=== PATIENT | female | born 1945 | race Caucasian/White ===

== ENCOUNTER 2016-04-30 12:48 | Emergency (ER) | payer MEDICARE ==
[2016-04-30 13:28] LABS: Basophils % (A) 1 %; CH 31.7; CHCM 34.7; Eosinophils # (A) 0.1 k/uL (0-0.7); Eosinophils % (A) 1 %; HCT 45.9 % (34.0-46.0); HDW 2.74; HGB 15.4 gm/dL (11.4-16.0); Luc # (Auto) 0.14; Luc % (Auto) 2; Lymphocytes # (A) 2.1 k/uL (1.0-4.8); Lymphocytes % (A) 25 %; MCH 30.9 pg (25.0-35.0); MCHC 33.6 g/dL (31.0-37.0); MCV 91.9 fL (80.0-100.0); Mean Platelet Volume 7.5; Monocytes # (A) 0.4 k/uL (0-1.0); Monocytes % (A) 5 %; Neutrophils # (A) 5.7 k/uL (1.3-7.7); Neutrophils % (A) 67 %; RBC 4.99 m/uL (3.80-5.40); RDW 13.9 % (11.5-15.5); WBC 8.4 k/uL (3.8-10.6); WBC (Perox) 8.48
[2016-04-30 13:36] LABS: ALT 44 U/L (9-52); AST 31 U/L (14-36); Alkaline Phosphatase 115 U/L (38-126); Amylase 49 U/L (30-110); Anion Gap 12 mmol/L; Blood Urea Nitrogen 14 mg/dL (7-17); Calcium 9.7 mg/dL (8.4-10.2); Carbon Dioxide 23 mmol/L (22-30); Chloride 105 mmol/L (98-107); Glucose 107 mg/dL (74-99); Magnesium 1.8 mg/dL (1.6-2.3); Non-African American GFR(MDRD) >60 (>60 ml/min/1.73 sqM); Potassium 4.8 mmol/L (3.5-5.1); Sodium 140 mmol/L (137-145); Total Bilirubin 0.7 mg/dL (0.2-1.3)
--- NOTE | 2016-04-30 13:38 | XR ---
EXAMINATION TYPE: XR chest 2V DATE OF EXAM: 04/30/2016 1:33 PM COMPARISON: 03/11/2016 HISTORY: Chest pain FINDINGS: The lungs are clear and there is no pneumothorax, pleural effusion, or focal pneumonia. Biapical pl eural-based thickening. Arthropathy of the AC joints. Degenerative change of the spine. IMPRESSION: 1. No acute process.
--- NOTE | 2016-04-30 13:43 | ED ---
Chest Pain HPI - General Chief Complaint: Chest Pain Stated Complaint: Chest Pain Time Seen by Provider: 04/30/16 12:58 Source: patient, RN notes reviewed Mode of arrival: wheelchair - History of Present Illness Initial Comments: This is a 71-year-old female her prior history of pulmonary embolism in the right side 2 years ago who presents with complaints of the onset of chest pain. She states was 9 at/10 in severity left-sided sharp in nature suicidal for the past 4-5 days and 3 was constant today and however was radiating to the back. No complaints of cough fevers chills nausea vomiting sweats or other symptoms. MD Complaint: chest pain - Related Data Home Medications Medication Instructions Recorded Confirmed Albuterol Inhaler [Ventolin Hfa 2 puff INHALATION RT-Q6H PRN 03/11/16 04/30/16 Inhaler] Budesonide/Formoterol Fumarate 2 puff INHALATION RT-BID PRN 03/11/16 04/30/16 [Symbicort 160-4.5 Mcg Inhaler] Ipratropium-Albuterol Nebulize 3 ml INHALATION RT-TID PRN 03/11/16 04/30/16 [Duoneb 0.5 mg-3 mg/3 ml Soln] Zolpidem [Ambien] 5 mg PO HS PRN 03/11/16 04/30/16 HYDROcodone/APAP 5-325MG [[place] 1 tab PO Q8H PRN 04/30/16 04/30/16 5-325] Previous Rx's Medication Instructions Recorded Albuterol Nebulized [Ventolin 2.5 mg INHALATION RT-QID nebu 03/14/16 Nebulized] Loratadine [Claritin] 10 mg PO DAILY #30 tab 03/14/16 Montelukast [Singulair] 10 mg PO HS #30 tab 03/14/16 HYDROcodone/APAP 7.5-325MG [[place] 1 tab PO Q6HR PRN #20 tab 04/30/16 7.5-325] Ketorolac [Toradol] 10 mg PO Q6HR #20 tab 04/30/16 Allergies Allergy/AdvReac Type Severity Reaction Status Date / Time amoxicillin trihydrate Allergy Nausea & Verified 04/30/16 13:43 [From Augmentin] Vomiting caffeine Allergy Rapid Verified 04/30/16 13:43 Heart Rate- CAUSES A FLUTTER morphine Allergy Nausea & Verified 04/30/16 13:43 Vomiting Penicillins Allergy Nausea & Verified 04/30/16 13:43 Vomiting potassium clavulanate Allergy Nausea & Verified 04/30/16 13:43 [From Augmentin] Vomiting prednisone AdvReac Diarrhea Verified 04/30/16 13:43 Review of Systems ROS Statement: Those systems with pertinent positive or pertinent negative responses have been documented in the HPI. ROS Other: All systems not noted in ROS Statement are negative. EKG Findings - EKG Results: EKG: interpreted by FRANK, sinus rhythm (Sinus rhythm rate is 73. Arrival 144 QRS duration 84 QT/QTC 394/434 left exodeviation LVH nonspecific ST configuration) Past Medical History Past Medical History: Asthma, Deep Vein Thrombosis (DVT), Hyperlipidemia, Myocardial Infarction (CA), Neurologic Disorder, Pulmonary Embolus (PE), Respiratory Disorder Additional Past Medical History / Comment(s): 2013 pulmonary embolism, DVT GLORY. LEGS 1988, BRAIN ANEURYSM ABOUT 5 MM- HAS CHECKED REGULARLY- HASN'T GROWN, migraines, osteoporosis, past R lowr arm fx. Last Myocardial Infarction Date:: 2007 History of Any Multi-Drug Resistant Organisms: None Reported Past Surgical History: Heart Catheterization, Hysterectomy, Orthopedic Surgery Additional Past Surgical History / Comment(s): 2007 cardiac cath-clear, RT ROTATOR CUFF REPAIR 2001?, CHIARI MALFORMATION SURGERY 2001, colonoscopy-normal Past Anesthesia/Blood Transfusion Reactions: Postoperative Nausea & Vomiting ( PONV) Past Psychological History: No Psychological Hx Reported Additional Psychological History / Comment(s): Pt resides with her spouse. She is independent. Smoking Status: Former smoker Past Alcohol Use History: Occasional Additional Past Alcohol Use History / Comment(s): Pt started smoking in 1961 and quit in 2007. Past Drug Use History: None Reported - Past Family History Father Family Medical History: Cancer Additional Family Medical History / Comment(s): Bipolar, Melonoma Cancer Mother Family Medical History: Cancer, Diabetes Mellitus Additional Family Medical History / Comment(s): Cervical cancer General Exam - General Exam Comments Initial Comments: Is a well-developed well-nourished awake alert oriented 3 female General appearance: alert, anxious Head exam: Present: atraumatic, normocephalic, normal inspection Eye exam: Present: normal appearance, PERRL, EOMI. Absent: scleral icterus, conjunctival injection, periorbital swelling ENT exam: Present: normal exam, mucous membranes moist Neck exam: Present: normal inspection. Absent: tenderness, meningismus, lymphadenopathy Respiratory exam: Present: normal lung sounds bilaterally, chest wall tenderness. Absent: respiratory distress, wheezes, rales, rhonchi, stridor Cardiovascular Exam: Present: regular rate, normal rhythm, normal heart sounds. Absent: systolic murmur, diastolic murmur, rubs, gallop, clicks GI/Abdominal exam: Present: soft, normal bowel sounds. Absent: distended, tenderness, guarding, rebound, rigid Extremities exam: Present: normal inspection, full ROM, normal capillary refill. Absent: tenderness, pedal edema, joint swelling, calf tenderness Back exam: Present: normal inspection Neurological exam: Present: alert, oriented X3, CN II-XII intact Psychiatric exam: Present: normal affect, normal mood Skin exam: Present: warm, dry, intact, normal color. Absent: rash Course Vital Signs 04/30/16 12:51 Temperature 97.6 F Pulse Rate 78 Respiratory 22 Rate Blood Pressure 146/80 O2 Sat by Pulse 99 Oximetry Chest Pain MDM - MDM I did discuss findings with the patient and her . X-rays are negative the workup is thus far negative the presentation is consistent with costochondritis. She had recently been doing a lot of coughing. She'll be discharged on appropriate medication she is to follow-up with her doctor and return when necessary Disposition Clinical Impression: Costalchondritis, Chest wall syndrome Disposition: HOME SELF-CARE Condition: Good Instructions: Costochondritis (ED) Prescriptions: HYDROcodone/APAP 7.5-325MG [[place] 7.5-325] 1 tab PO Q6HR PRN #20 tab PRN Reason: Pain Ketorolac [Toradol] 10 mg PO Q6HR #20 tab
[2016-04-30 13:55] LABS: INR 1.1 (<1.1); Prothrombin Time 10.7 sec (9.0-12.0)
[2016-04-30 14:00] LABS: Creatine Kinase 46 U/L (30-135)
[2016-04-30 14:02] LABS: Partial Thromboplastin Time 21.9 sec (22.0-30.0)
[2016-04-30 14:12] LABS: Creatine Kinase MB 0.7 ng/mL (0.0-2.4); Troponin I <0.012 ng/mL (0.000-0.034)
[2016-04-30] MEDS ORDERED: RX INFO: IV CONTRAST WAS GIVEN 1 EACH MISC MISCELLANE PRN (14:17)
--- NOTE | 2016-04-30 14:57 | CT ---
EXAMINATION TYPE: CT angio chest DATE OF EXAM: 04/30/2016 2:44 PM COMPARISON: 08/23/2015 HISTORY: 71-year-old female with shortness or breath and chest pain with a history of PE. TECHNIQUE: Contiguous axial scanning of the chest performed with IV Contrast, patient injected with 1 00 mL of Omnipaque 350. Coronal/sagittal MIP reconstructions performed. CT DLP: 419.9 mGycm Automated exposure control for dose reduction was used. FINDINGS: Heart is normal size without pericardial effusion. Aorta is normal caliber with conventional arch vessel branching anatomy. No thoracic lymphadenopathy by CT size criteria. Satisfactory opacification of the pulmonary arterial system without evidence for pulmonary embolus. Mild central bronchial wall thickening is noted. No consolidation or pleural effusion. Mild dependent atelectasis. There is a small hiatal hernia. Possible fatty infiltration of the liver. 3 mm nonobstructive calculu s posterior left kidney. Bones: Mild endplate spondylosis throughout the thoracic spine. No osseous destructive process. IMPRESSION: 1. NO EVIDENCE FOR PULMONARY EMBOLUS. 2. MILD CENTRAL BRONCHIAL WALL THICKENING COULD REPRESENT BRONCHITIS OR ASTHMA. 3. SOME INCIDENTAL UPPER ABDOMINAL FINDINGS ABOVE.
[2016-04-30] MEDS ORDERED: KETOROLAC 30 MG/ML 1 ML VIAL IVP STA (15:41)
[2016-04-30 15:56] VITALS: PULSE 67; RESP 16; TEMP 96.9
[2016-04-30 16:02] VITALS: BP 142/93
== END 2016-04-30 16:03 | disposition home or self-care (01) ==
LOC: EC 12:48
DX: M94.0 Chondrocostal junction syndrome [Tietze] (principal); R07.1 Chest pain on breathing; J45.909 Unspecified asthma, uncomplicated; I25.2 Old myocardial infarction; Z88.0 Allergy status to penicillin; Z88.5 Allergy status to narcotic agent; Z91.048 Other nonmedicinal substance allergy status; Z88.8 Allergy status to other drugs, medicaments and biological substances; Z86.711 Personal history of pulmonary embolism; Z86.718 Personal history of other venous thrombosis and embolism; Z87.891 Personal history of nicotine dependence
CPT/HCPCS: 36415; 93005; 85379; 80053; 82150; 82550; 82553; 83690; 83735; 84484; 85025; 85610; 85730; 71020; 71275; 96374; 99285; Q9967; J1885

== ENCOUNTER 2016-07-14 00:20 | Inpatient (IN) | payer MEDICARE ==
[2016-07-14 01:11] LABS: Basophils # (A) 0.1 k/uL (0-0.2); Basophils % (A) 1 %; CH 32.8; CHCM 34.3; Eosinophils % (A) 0 %; HCT 43.6 % (34.0-46.0); HDW 2.62; HGB 14.6 gm/dL (11.4-16.0); Luc # (Auto) 0.16; Luc % (Auto) 2; Lymphocytes # (A) 3.8 k/uL (1.0-4.8); Lymphocytes % (A) 39 %; MCH 32.2 pg (25.0-35.0); MCHC 33.4 g/dL (31.0-37.0); MCV 96.3 fL (80.0-100.0); Monocytes # (A) 0.5 k/uL (0-1.0); Monocytes % (A) 5 %; Neutrophils # (A) 5.2 k/uL (1.3-7.7); Neutrophils % (A) 54 %; RBC 4.52 m/uL (3.80-5.40); RDW 13.3 % (11.5-15.5); WBC 9.8 k/uL (3.8-10.6); WBC (Perox) 9.65
[2016-07-14 01:21] LABS: ALT 34 U/L (9-52); AST 23 U/L (14-36); Alkaline Phosphatase 97 U/L (38-126); Amylase 43 U/L (30-110); Anion Gap 11 mmol/L; Blood Urea Nitrogen 22 mg/dL (7-17); Calcium 9.3 mg/dL (8.4-10.2); Carbon Dioxide 23 mmol/L (22-30); Chloride 104 mmol/L (98-107); Glucose 148 mg/dL (74-99); Non-African American GFR(MDRD) >60 (>60 ml/min/1.73 sqM); Potassium 3.9 mmol/L (3.5-5.1); Sodium 138 mmol/L (137-145); Total Bilirubin 0.7 mg/dL (0.2-1.3); Total Protein 6.4 g/dL (6.3-8.2)
[2016-07-14 01:26] LABS: INR 1.2 (<1.1); Prothrombin Time 11.6 sec (9.0-12.0)
--- NOTE | 2016-07-14 01:29 | ED ---
Chest Pain HPI - General Chief Complaint: Chest Pain Stated Complaint: CHEST PAIN Time Seen by Provider: 07/14/16 00:36 Source: patient, EMS Mode of arrival: EMS Limitations: no limitations - History of Present Illness Initial Comments: This patient is a 71-year-old woman who presents to be evaluated for substernal chest pain. The patient indicates the area from the epigastrium to about sternal notch. She states that radiates to her back. The pain started around 9 :30 while she was driving here from [place]. She describes it as a severe heaviness, constant. She tried a number of things at home for this, including sitting down and resting, lying down, but not it seemed to help. When the pain continued they phoned EMS, who did give nitroglycerin that seemed to help with the pain. In addition, the patient had an episode of nausea and vomiting at home. She also stated that it was feeling hard to breathe and she was somewhat sweaty. MD Complaint: chest pain Onset/Timin -: hour(s) Onset: other (While driving) Pain Location: substernal Pain Radiation: back Severity: severe Quality: heaviness Consistency: constant Improves With: nitroglycerin Worsens With: nothing Anginal Symptoms: nausea, vomiting Treatments Prior to Arrival: aspirin, nitroglycerin, oxygen - Related Data Home Medications Medication Instructions Recorded Confirmed Albuterol Inhaler [Ventolin Hfa 2 puff INHALATION RT-Q6H PRN 03/11/16 07/14/16 Inhaler] Budesonide/Formoterol Fumarate 2 puff INHALATION RT-BID PRN 03/11/16 07/14/16 [Symbicort 160-4.5 Mcg Inhaler] Ipratropium-Albuterol Nebulize 3 ml INHALATION RT-TID PRN 03/11/16 07/14/16 [Duoneb 0.5 mg-3 mg/3 ml Soln] Zolpidem [Ambien] 5 mg PO HS PRN 03/11/16 07/14/16 Escitalopram [Lexapro] 10 mg PO DAILY 07/14/16 07/14/16 Previous Rx's Medication Instructions Recorded Albuterol Nebulized [Ventolin 2.5 mg INHALATION RT-QID nebu 03/14/16 Nebulized] Montelukast [Singulair] 10 mg PO HS #30 tab 03/14/16 Allergies Allergy/AdvReac Type Severity Reaction Status Date / Time amoxicillin trihydrate Allergy Nausea & Verified 07/14/16 00:38 [From Augmentin] Vomiting caffeine Allergy Rapid Verified 07/14/16 00:38 Heart Rate- CAUSES A FLUTTER morphine Allergy Nausea & Verified 07/14/16 00:38 Vomiting Penicillins Allergy Nausea & Verified 07/14/16 00:38 Vomiting potassium clavulanate Allergy Nausea & Verified 07/14/16 00:38 [From Augmentin] Vomiting prednisone AdvReac Diarrhea Verified 07/14/16 00:38 Review of Systems ROS Statement: Those systems with pertinent positive or pertinent negative responses have been documented in the HPI. ROS Other: All systems not noted in ROS Statement are negative. Constitutional: Denies: fever, chills Respiratory: Reports: as per HPI, dyspnea. Denies: cough, wheezes, hemoptysis Cardiovascular: Reports: as per HPI, chest pain. Denies: palpitations, dyspnea on exertion, orthopnea, edema, syncope Gastrointestinal: Reports: as per HPI, nausea, vomiting. Denies: abdominal pain , melena, hematochezia Genitourinary: Denies: dysuria, hematuria Musculoskeletal: Reports: as per HPI, back pain Skin: Denies: rash Neurological: Denies: headache, weakness Psychiatric: Reports: anxiety EKG Findings - EKG Comments: EKG Findings:: Comparison EKG 04/30/2016. In comparison with today there is a moderate amount of baseline artifact due to tremor however no notable EKG changes. - EKG Results: EKG: interpreted by ERMD, sinus rhythm (Rate 62 bpm) - Blocks, Dumas, Hypertrophy, ST Abn: QRS axis and voltage: left axis deviation (-30 to -90) Chamber hypertrophy or enlargement: left ventricular hypertrophy or enlargement (LVE) Repolarization changes or abnormalities: nonspecific abnormality, ST segment, and/or T wave Past Medical History Past Medical History: Asthma, Deep Vein Thrombosis (DVT), Hyperlipidemia, Myocardial Infarction (ID), Neurologic Disorder, Pulmonary Embolus (PE), Respiratory Disorder Additional Past Medical History / Comment(s): 2013 pulmonary embolism, DVT GLORY. LEGS 1988, BRAIN ANEURYSM ABOUT 5 MM- HAS CHECKED REGULARLY- HASN'T GROWN, migraines, osteoporosis, past R lowr arm fx. Last Myocardial Infarction Date:: 2007 History of Any Multi-Drug Resistant Organisms: None Reported Past Surgical History: Heart Catheterization, Hysterectomy, Orthopedic Surgery Additional Past Surgical History / Comment(s): 2007 cardiac cath-clear, RT ROTATOR CUFF REPAIR 2001?, CHIARI MALFORMATION SURGERY 2001, colonoscopy-normal Past Anesthesia/Blood Transfusion Reactions: Postoperative Nausea & Vomiting ( PONV) Past Psychological History: No Psychological Hx Reported Additional Psychological History / Comment(s): Pt resides with her spouse. She is independent. Smoking Status: Former smoker Past Alcohol Use History: Occasional Additional Past Alcohol Use History / Comment(s): Pt started smoking in 1961 and quit in 2007. Past Drug Use History: None Reported - Past Family History Father Family Medical History: Cancer Additional Family Medical History / Comment(s): Bipolar, Melonoma Cancer Mother Family Medical History: Cancer, Diabetes Mellitus Additional Family Medical History / Comment(s): Cervical cancer General Exam Limitations: no limitations General appearance: alert, anxious Head exam: Present: atraumatic, normocephalic Eye exam: Present: normal appearance ENT exam: Present: mucous membranes dry Neck exam: Present: normal inspection Respiratory exam: Present: normal lung sounds bilaterally. Absent: respiratory distress, wheezes, rales, rhonchi, stridor Cardiovascular Exam: Present: regular rate, normal rhythm, normal heart sounds. Absent: systolic murmur, diastolic murmur, rubs, gallop GI/Abdominal exam: Present: soft. Absent: distended, tenderness, guarding, rebound Extremities exam: Present: normal inspection, normal capillary refill. Absent: pedal edema, calf tenderness Back exam: Present: normal inspection. Absent: CVA tenderness (R), CVA tenderness (L) Neurological exam: Present: alert Skin exam: Present: warm, dry, intact, normal color. Absent: rash Course Vital Signs 07/14/16 07/14/16 00:33 04:46 Temperature 98 F Pulse Rate 52 L 56 L Respiratory 20 16 Rate Blood Pressure 146/74 155/72 O2 Sat by Pulse 97 98 Oximetry Chest Pain [facility] Patient is a 71-year-old woman presenting with chest pain and found to have acute PE. Given her recent return travel here from [place], suspect that this is the etiology of the PE. Patient will have duplex Doppler. Patient is started on high-dose heparin protocol. She is hemodynamically stable and her symptoms have been managed well with the medication from EMS. Patient admitted under hospitalist group, covering for Dr. Bates on weekends. This patient does see Dr. Garcia for her pulmonology care, and he will be consulted as well. Critical Care Time Critical Care Time: Yes (35 minutes) Disposition Clinical Impression: Pulmonary embolism Disposition: ADMITTED IP TO THIS HOSP Condition: Serious
[2016-07-14 01:31] LABS: Creatine Kinase 28 U/L (30-135)
--- NOTE | 2016-07-14 01:43 | XR ---
EXAM: XR Chest, 2 Views. CLINICAL HISTORY: Reason: Chest Pain TECHNIQUE: Frontal and lateral views of the chest. COMPARISON: CXR 04/30/16 FINDINGS: Lungs: Unremarkable. No consolidation. Pleural space: Unremarkable. No pneumothorax. Heart: Unremarkable. No cardiomegaly. Mediastinum: Unremarkable. Bones/joints: Multilevel degenerative changes of the spine. IMPRESSION: No acute findings.
[2016-07-14 01:44] LABS: Creatine Kinase MB 0.4 ng/mL (0.0-2.4); Troponin I <0.012 ng/mL (0.000-0.034)
[2016-07-14 02:02] LABS: Partial Thromboplastin Time 20.2 sec (22.0-30.0)
[2016-07-14] MEDS ORDERED: RX INFO: IV CONTRAST WAS GIVEN 1 EACH MISC MISCELLANE PRN (02:34)
--- NOTE | 2016-07-14 03:39 | CT ---
EXAM: CT Angiography Chest With Intravenous Contrast. CLINICAL HISTORY: Reason: Pain TECHNIQUE: Axial computed tomographic angiography images of the chest with intravenous contrast using pulmonary embolism protocol. CTDI is 11.5 mGy and total DLP is 461 mGy-cm This CT exam was performed using one or more of the following dose reduction techniques: automated exposure control, adjustment of the mA and/or kV according to patient size, and/or use of iterative reconstruction technique. MIP reconstructed images were created and reviewed. Coronal and sagittal reformatted images were created and reviewed. COMPARISON: Chest CT 04/30/16. FINDINGS: Pulmonary arteries: Acute pulmonary emboli are seen within a medial left lower lobe subsegmental artery and a lateral subsegmental left lower lobe pulmonary artery. Aorta: No acute findings. No thoracic aortic aneurysm. Lungs: Left upper lobe granuloma. Bibasilar atelectasis. No mass. Pleural space: Unremarkable. No significant effusion. No pneumothorax. Heart: Unremarkable. No cardiomegaly. No significant pericardial effusion. No evidence of RV dysfunction. Bones/joints: No acute fracture. No dislocation. Soft tissues: Unremarkable. Lymph nodes: Unremarkable. No enlarged lymph nodes. Upper Abdomen: 3 mm left renal calculus. Fatty infiltration of the liver. Small hiatal hernia. IMPRESSION: Acute pulmonary emboli are seen within a medial left lower lobe subsegmental artery and a lateral subsegmental left lower lobe pulmonary artery. [employer] 07/14/16 03:41 Call Doctor Regarding Pulmonary Embolism, called Dr. Lynn on 07/14 03:41 (-04:00)
[2016-07-14] MEDS ORDERED: HEPARIN SODIUM,PORCINE 5,000 UNIT/ML 1 ML VIAL IV PRN (03:41)
[2016-07-14] MEDS ORDERED: HEPARIN SODIUM,PORCINE 10,000 UNIT/ML 1 ML VIAL IV ONE (03:41)
[2016-07-14] MEDS: HEPARIN SODIUM,PORCINE/D5W PMX 25,000 UNIT in DEXTROSE/WATER 1 500ML.BAG IV SCH (04:17)
[2016-07-14] MEDS ORDERED: ONDANSETRON 4 MG/2 ML VIAL IVP PRN (04:25)
[2016-07-14] MEDS ORDERED: MAG HYDROX/AL HYDROX/SIMETH 30 ML CUP PO PRN (04:25)
[2016-07-14] MEDS ORDERED: NALOXONE 0.4 MG/ML 1 ML VIAL IV PRN (04:25)
[2016-07-14] MEDS ORDERED: IPRATROPIUM-ALBUTEROL 3 ML NEB INHALATION PRN (04:29)
[2016-07-14] MEDS ORDERED: ZOLPIDEM 5 MG TAB PO PRN (04:29)
[2016-07-14] MEDS ORDERED: SYMBICORT 160-4.5 MCG INHALER INHALATION PRN (04:29)
[2016-07-14] MEDS ORDERED: ALBUTEROL NEBULIZED 2.5 MG/3 ML INHALATION PRN (04:29)
[2016-07-14] MEDS ORDERED: IBUPROFEN 400 MG TAB PO STA (04:53)
[2016-07-14] MEDS: SODIUM CHLORIDE 0.9% 1,000 ML IV SCH (04:58)
[2016-07-14 05:26] VITALS: BMI 30.3
[2016-07-14] MEDS: FAMOTIDINE 20 MG TAB PO SCH ×2 (08:47→23:05)
[2016-07-14] MEDS: ACETAMINOPHEN TAB 325 MG TAB PO PRN (11:06)
--- NOTE | 2016-07-14 11:58 | US ---
EXAMINATION TYPE: US venous doppler duplex LE BI DATE OF EXAM: 07/14/2016 10:32 AM COMPARISON: 12/02/2013 CLINICAL HISTORY: 71-year-old female with pain, possible DVT. PE, patient states bilateral leg pain, currently on blood thinners SIDE PERFORMED: Bilateral TECHNIQUE: The lower extremity deep venous system is examined utilizing real time linear array sonog stalin with graded compression, doppler sonography and color-flow sonography. FINDINGS: VESSELS IMAGED: External Iliac Vein (EIV) Common Femoral Vein Deep Femoral Vein Greater Saphenous Vein * Femoral Vein Popliteal Vein Small Saphenous Vein * Proximal Calf Veins (* superficial vessels) Right Leg: Negative for DVT Left Leg: Negative for DVT IMPRESSION: No evidence for DVT within the bilateral lower extremities imaged from the groin to the upper calves.
--- NOTE | 2016-07-14 12:03 | P.CNPUL ---
History of Present Illness Consult date: 07/14/16 Reason for consult: pulmonary embolism History of present illness: Very pleasant 71-year-old female patient who presented yesterday to the emergency department because of an acute pain over the anterior chest that was getting worse with breathing. She was thinking that this may be costochondritis knowing that she is been suffering from the same for the past 3 months. In fact the patient was in the emergency department on 04/30/2016 for costochondritis and she was given painkillers. She has a remote history of bilateral lower extremity DVT and this was more than 35 years ago. Back in 2013 , she was diagnosed having a subsegmental pulmonary embolism in the right lung and she was given brief anticoagulation with Xarelto. She subsequently quit. During this current episode, the patient was driving back from [place]. She dropped her daughter in [place] and following that she drove herself to [place]. The patient claims that she had made some stops in between the 70s and she was stretching her legs and keeping herself active. A Doppler of the lower extremity was done this morning and the results are still pending for now and I' m not sure if there is any clots in her leg. Meanwhile the patient is currently on IV heparin. She is doing better. No shortness of breath for now. No chest pain. The CT angios the chest was done. I reviewed the CAT scan images. There is no central pulmonary embolism. There may be a subsegmental pulmonary artery clot in the left lower lobe and this was also noted by the radiologist. I think it's reasonable to treat this patient with anticoagulation based on her history which is very much suggestive of a PE. Review of Systems Full review of system was done and the positive findings are almost above in history of present illness Past Medical History Past Medical History: Asthma, Deep Vein Thrombosis (DVT), Hyperlipidemia, Myocardial Infarction ([place]), Neurologic Disorder, Pulmonary Embolus (PE), Respiratory Disorder Additional Past Medical History / Comment(s): 2013 pulmonary embolism, DVT GLORY. LEGS 1988, moderate persistent bronchial asthma, costochondritis BRAIN ANEURYSM ABOUT 5 MM- HAS CHECKED REGULARLY- HASN'T GROWN, migraines, osteoporosis, Chiari malformation of the brain Last Myocardial Infarction Date:: 2007 History of Any Multi-Drug Resistant Organisms: None Reported Past Surgical History: Heart Catheterization, Hysterectomy, Orthopedic Surgery Additional Past Surgical History / Comment(s): 2007 cardiac cath-clear, RT ROTATOR CUFF REPAIR 2001?, CHIARI MALFORMATION SURGERY 2001, colonoscopy-normal Past Anesthesia/Blood Transfusion Reactions: Postoperative Nausea & Vomiting ( PONV) Past Psychological History: No Psychological Hx Reported Additional Psychological History / Comment(s): Pt resides with her spouse. She is independent. Smoking Status: Former smoker Past Alcohol Use History: Occasional Additional Past Alcohol Use History / Comment(s): Pt started smoking in 1961 and quit in 2007. Past Drug Use History: None Reported - Past Family History Father Family Medical History: Cancer Additional Family Medical History / Comment(s): Bipolar, Melonoma Cancer Mother Family Medical History: Cancer, Diabetes Mellitus Additional Family Medical History / Comment(s): Cervical cancer Medications and Allergies Home Medications Medication Instructions Recorded Confirmed Type Albuterol Inhaler [Ventolin Hfa 2 puff INHALATION RT-Q6H PRN 03/11/16 07/14/16 History Inhaler] Budesonide/Formoterol Fumarate 2 puff INHALATION RT-BID PRN 03/11/16 07/14/16 History [Symbicort 160-4.5 Mcg Inhaler] Zolpidem [Ambien] 5 mg PO HS PRN 03/11/16 07/14/16 History Albuterol Nebulized [Ventolin 2.5 mg INHALATION RT-QID PRN 07/14/16 07/14/16 History Nebulized] Escitalopram [Lexapro] 10 mg PO DAILY 07/14/16 07/14/16 History Allergies Allergy/AdvReac Type Severity Reaction Status Date / Time amoxicillin trihydrate Allergy Nausea & Verified 07/14/16 11:53 [From Augmentin] Vomiting caffeine Allergy Rapid Verified 07/14/16 11:53 Heart Rate- CAUSES A FLUTTER morphine Allergy Nausea & Verified 07/14/16 11:53 Vomiting Penicillins Allergy Nausea & Verified 07/14/16 11:53 Vomiting potassium clavulanate Allergy Nausea & Verified 07/14/16 11:53 [From Augmentin] Vomiting prednisone AdvReac Diarrhea Verified 07/14/16 11:53 Physical Exam Vitals: Vital Signs Temp Pulse Pulse Resp BP BP Pulse Ox 07/14/16 08:02 96 07/14/16 08:00 97.9 F 70 16 124/65 97 07/14/16 05:12 96.8 F L 57 L 18 177/80 98 07/14/16 04:46 56 L 16 155/72 98 Intake and Output 07/13/16 07/14/16 07/14/16 22:59 06:59 14:59 Intake Total 222 60 Balance 222 60 Intake: IV 160 Sodium Chloride 0.9% 1, 160 000 ml @ 20 mls/hr IV . Q24H MONICA Rx#:[id number] Intake, IV Titration 62 Amount Heparin Sodium,Porcine/ 62 D5w Pmx 25,000 unit In Dextrose/Water 1 500ml. bag @ 18 UNITS/KG/HR 31. 02 mls/hr IV .Q16H8M MONICA Rx#:[id number] Oral 60 Other: Weight 82.6 kg The patient appeared well nourished and normally developed. Vital signs as documented. Head exam is unremarkable. No scleral icterus or corneal arcus noted. Neck is without jugular venous distension, thyromegaly, or carotid bruits. Carotid upstrokes are brisk bilaterally. Lungs are clear to auscultation and percussion. Cardiac exam reveals the PMI to be normally sized and situated. Rhythm is regular. First and second heart sounds normal. No murmurs, rubs or gallops. Abdominal exam reveals normal bowel sounds, no masses , no organomegaly and no aortic enlargement. Extremities are nonedematous and both femoral and pedal pulses are normal. Results - Laboratory Findings CBC and BMP: 07/14/16 00:45 07/14/16 00:45 PT/INR, D-dimer PT 11.6 sec (9.0-12.0) 07/14/16 00:45 INR 1.2 (<1.1) 07/14/16 00:45 D-Dimer 2.20 mg/L FEU (<0.60) H 07/14/16 00:45 - Diagnostic Findings Chest x-ray: image reviewed CT scan - chest: image reviewed Assessment and Plan Plan: Assessment 1 suspected pulmonary embolism involving the left lower lobe segmental/ subsegmental branch. 2 chest pain likely secondary to above, recovered 3 history of costochondritis 4 previous history of pulmonary embolism in 2013, treated with Xarelto 5 previous history of DVT of the lower extremities bilaterally 6 [employer] 5 mm aneurysm being monitored in addition to previous Chiari malformation 7 moderate persistent bronchial asthma within on Symbicort and being followed up in our office Plan I reviewed the previous CAT scans and I also talked to the patient at length. I think her sore he is very suggestive of pulmonary embolism. Her clinical presentation is suggestive. Nevertheless the CAT scan is not absolutely convincing. I'm still awaiting the Doppler of the lower extremity. Continued IV heparin. I am inclined to treat this patient with Xarelto again taken in account that the patient was having pain and he has previous history of venous thromboembolic disease. This will be also discussed further with Dr. Garcia.
[2016-07-14] MEDS: oxyCODONE-APAP 7.5-325MG 1 EACH TAB PO PRN ×2 (16:41→23:04)
[2016-07-14] MEDS: ESCITALOPRAM 10 MG TAB PO SCH (18:38)
[2016-07-14 19:08] LABS: Basophils # (A) 0.1 k/uL (0-0.2); Basophils % (A) 1 %; CH 32.2; CHCM 32.9; Eosinophils # (A) 0.1 k/uL (0-0.7); Eosinophils % (A) 1 %; HCT 44.3 % (34.0-46.0); HDW 2.62; HGB 14.2 gm/dL (11.4-16.0); Luc # (Auto) 0.15; Luc % (Auto) 2; Lymphocytes # (A) 2.7 k/uL (1.0-4.8); Lymphocytes % (A) 30 %; MCH 31.6 pg (25.0-35.0); MCHC 32.1 g/dL (31.0-37.0); MCV 98.4 fL (80.0-100.0); Mean Platelet Volume 7.7; Monocytes # (A) 0.5 k/uL (0-1.0); Monocytes % (A) 6 %; Neutrophils # (A) 5.3 k/uL (1.3-7.7); Neutrophils % (A) 60 %; RDW 13.1 % (11.5-15.5); WBC 8.9 k/uL (3.8-10.6); WBC (Perox) 8.71
[2016-07-14] MEDS ORDERED: ESCITALOPRAM 10 MG TAB PO SCH (19:45)
[2016-07-14] MEDS: MONTELUKAST 10 MG TAB PO SCH (23:05)
[2016-07-15] MEDS: HEPARIN SODIUM,PORCINE/D5W PMX 25,000 UNIT in DEXTROSE/WATER 1 500ML.BAG IV SCH ×2 (04:44→14:27)
[2016-07-15] MEDS: oxyCODONE-APAP 7.5-325MG 1 EACH TAB PO PRN ×3 (04:44→21:07)
[2016-07-15] MEDS ORDERED: BUTALB/APAP/CAFF 50-325-40MG TAB PO PRN (05:23)
[2016-07-15] MEDS ORDERED: HYDROmorphone 1 MG/ML 1 ML SYRINGE IVP STA (05:24)
[2016-07-15 05:43] LABS: Basophils # (A) 0.1 k/uL (0-0.2); Basophils % (A) 1 %; CH 31.7; CHCM 33.4; Eosinophils # (A) 0.2 k/uL (0-0.7); Eosinophils % (A) 2 %; HCT 40.8 % (34.0-46.0); HDW 2.68; HGB 14.1 gm/dL (11.4-16.0); Luc # (Auto) 0.14; Luc % (Auto) 2; Lymphocytes # (A) 2.8 k/uL (1.0-4.8); Lymphocytes % (A) 36 %; MCHC 34.6 g/dL (31.0-37.0); MCV 95.3 fL (80.0-100.0); Monocytes # (A) 0.5 k/uL (0-1.0); Monocytes % (A) 7 %; Neutrophils # (A) 4.1 k/uL (1.3-7.7); Neutrophils % (A) 52 %; RBC 4.29 m/uL (3.80-5.40); RDW 13.1 % (11.5-15.5); WBC 7.9 k/uL (3.8-10.6); WBC (Perox) 8.48
[2016-07-15 06:34] LABS: Anion Gap 8 mmol/L; Blood Urea Nitrogen 14 mg/dL (7-17); Calcium 8.7 mg/dL (8.4-10.2); Carbon Dioxide 25 mmol/L (22-30); Chloride 106 mmol/L (98-107); Glucose 99 mg/dL (74-99); Non-African American GFR(MDRD) >60 (>60 ml/min/1.73 sqM); Potassium 4.2 mmol/L (3.5-5.1); Sodium 139 mmol/L (137-145)
[2016-07-15] MEDS ORDERED: PROMETHAZINE INJ 50 MG in SODIUM CHLORIDE 0.9% 50 ML IVPB PRN (07:43)
--- NOTE | 2016-07-15 07:49 | P.HPIM ---
History of Present Illness H&P Date: 07/15/16 Chief Complaint: left-sided chest pain. This is a history of physical 71-year-old white female who was been seeing me for left-sided chest pain. She has actually treated for cost chondritis. Previous diagnostic workup did not show significant issue. However, she states significant nausea with left-sided chest pressure. Workup in the emergency room was probable for acute lower left-sided subsegmental pulmonary embolus. The patient has had previous pulmonary embolus in 2013 and was treated with Xarelto past. For the last several months she's actually been improving pain perspective but suddenly decompensated. She is now placed on heparin and we'll most likely be placed on Xarelto Eliquis. Appreciate pulmonology input. Review of Systems Constitutional: Denies chills, Denies fever Eyes: denies blurred vision, denies pain Ears, nose, mouth and throat: Denies headache, Denies sore throat Cardiovascular: Denies chest pain, Denies shortness of breath Respiratory: Reports pleurisy, Denies cough Gastrointestinal: Denies abdominal pain, Denies diarrhea, Denies nausea, Denies vomiting Genitourinary: Denies dysuria, Denies hematuria Past Medical History Past Medical History: Asthma, Deep Vein Thrombosis (DVT), Hyperlipidemia, Myocardial Infarction ([place]), Neurologic Disorder, Pulmonary Embolus (PE), Respiratory Disorder Additional Past Medical History / Comment(s): 2013 pulmonary embolism, DVT GLORY. LEGS 1988, moderate persistent bronchial asthma, costochondritis BRAIN ANEURYSM ABOUT 5 MM- HAS CHECKED REGULARLY- HASN'T GROWN, migraines, osteoporosis, Chiari malformation of the brain Last Myocardial Infarction Date:: 2007 History of Any Multi-Drug Resistant Organisms: None Reported Past Surgical History: Heart Catheterization, Hysterectomy, Orthopedic Surgery Additional Past Surgical History / Comment(s): 2008 cardiac cath-clear, RT ROTATOR CUFF REPAIR 2001?, CHIARI MALFORMATION SURGERY 2001, colonoscopy-normal Past Anesthesia/Blood Transfusion Reactions: Postoperative Nausea & Vomiting ( PONV) Past Psychological History: No Psychological Hx Reported Additional Psychological History / Comment(s): Pt resides with her spouse. She is independent. Smoking Status: Former smoker Past Alcohol Use History: Occasional Additional Past Alcohol Use History / Comment(s): Pt started smoking in 1961 and quit in 2007. Past Drug Use History: None Reported - Past Family History Father Family Medical History: Cancer Additional Family Medical History / Comment(s): Bipolar, Melonoma Cancer Mother Family Medical History: Cancer, Diabetes Mellitus Additional Family Medical History / Comment(s): Cervical cancer Medications and Allergies Home Medications Medication Instructions Recorded Confirmed Type Albuterol Inhaler [Ventolin Hfa 2 puff INHALATION RT-Q6H PRN 03/11/16 07/14/16 History Inhaler] Budesonide/Formoterol Fumarate 2 puff INHALATION RT-BID PRN 03/11/16 07/14/16 History [Symbicort 160-4.5 Mcg Inhaler] Zolpidem [Ambien] 5 mg PO HS PRN 03/11/16 07/14/16 History Albuterol Nebulized [Ventolin 2.5 mg INHALATION RT-QID PRN 07/14/16 07/14/16 History Nebulized] Escitalopram [Lexapro] 10 mg PO DAILY 07/14/16 07/14/16 History Allergies Allergy/AdvReac Type Severity Reaction Status Date / Time amoxicillin trihydrate Allergy Nausea & Verified 07/14/16 11:53 [From Augmentin] Vomiting caffeine Allergy Rapid Verified 07/14/16 11:53 Heart Rate- CAUSES A FLUTTER morphine Allergy Nausea & Verified 07/14/16 11:53 Vomiting Penicillins Allergy Nausea & Verified 07/14/16 11:53 Vomiting potassium clavulanate Allergy Nausea & Verified 07/14/16 11:53 [From Augmentin] Vomiting prednisone AdvReac Diarrhea Verified 07/14/16 11:53 Physical Exam Vitals: Vital Signs Temp Pulse Resp BP Pulse Ox 07/15/16 04:00 97.8 F 66 18 153/81 94 L 07/15/16 00:00 71 18 139/84 96 07/14/16 20:00 97.5 F L 57 L 18 120/65 97 07/14/16 16:00 67 18 128/75 98 07/14/16 12:00 55 L 18 103/55 95 07/14/16 08:02 96 07/14/16 08:00 97.9 F 70 16 124/65 97 Intake and Output 07/14/16 07/15/16 07/15/16 22:59 06:59 14:59 Intake Total 549.341 120.608 Balance 549.341 120.608 Intake: Intake, IV Titration 119.341 120.608 Amount Heparin Sodium,Porcine/ 119.341 120.608 D5w Pmx 25,000 unit In Dextrose/Water 1 500ml. bag @ 18 UNITS/KG/HR 31. 02 mls/hr IV .Q16H8M [facility] Rx#:[id number] Oral 430 Other: Voiding Method Toilet Toilet # Voids 1 Weight 83.7 kg Patient Weight 07/16/16 06:59 Weight 83.7 kg - Constitutional General appearance: mild distress - EENT Eyes: EOMI - Neck Neck: no lymphadenopathy - Respiratory Respiratory: bilateral: diminished - Cardiovascular Rhythm: regular Heart sounds: normal: S1, S2 - Gastrointestinal General gastrointestinal: soft, no tenderness - Neurologic Neurologic: CNII-XII intact, focal deficits Results CBC & Chem 7: 07/15/16 05:25 07/15/16 05:25 Labs: Abnormal Lab Results - Last 24 Hours (Table) 07/14/16 07/14/16 07/15/16 Range/Units 11:25 17:55 05:25 APTT 126.1 H* 65.4 H 69.6 H (22.0-30.0) sec Thrombosis Risk Factor Assmnt - Choose All That Apply Any of the Below Risk Factors Present?: Yes Each Factor Represents 1 point: Medical pt on bed rest, Obesity (BMI >25) Other Risk Factors: Yes Each Risk Factor Represents 2 Points: Age 61-74 years Each Risk Factor Represents 3 Points: History of DVT/PE Thrombosis Risk Factor Assessment Total Risk Factor Score: 7 Thrombosis Risk Factor Assessment Level: High Risk Assessment and Plan (1) Asthma Status: Acute (2) Pulmonary embolism Status: Acute (3) Chronic nausea Status: Chronic Plan: continue anticoagulation at this time. Reconcile home medications. Again, most likely consider anticoagulation for longer period of time. Question need to do secondary workup for coagulopathy. She is full code at this time.
--- NOTE | 2016-07-15 08:29 | CT ---
EXAMINATION TYPE: CT brain wo con DATE OF EXAM: 07/15/2016 7:43 AM COMPARISON: NONE INDICATION: MODI DLP: 1017.9 mGycm, Automated exposure control for dose reduction was used. CONTRAST: None CT of the brain is performed utilizing 3 mm thick sections through the posterior fossa and 3 mm thick sections through the remaining calvarium. Study is performed within 24 hours of arrival to the hosp [facility]. Has been a prior posterior inferior occipital craniotomy. Fourth ventricle is normal in midline. Quad rigeminal plate and ambient cistern are patent. No abnormal hyperdensity is present to suggest an acute intracranial hemorrhage. No mass lesion is evident. No acute infarcts are evident. There is some periventricular white matter hypodensity, most likely on the basis of chronic white matter ischemic changes. Ventricles and sulci are appropriate for the patient age. Paranasal sinuses and mastoid air cells within the [id number] are clear. IMPRESSIONS: 1. Chronic appearing white matter ischemic changes, stable from 2013. 2. Postsurgical changes.
[2016-07-15] MEDS: FAMOTIDINE 20 MG TAB PO SCH ×2 (12:57→21:06)
[2016-07-15] MEDS: SODIUM CHLORIDE 0.9% 1,000 ML IV SCH (12:59)
--- NOTE | 2016-07-15 13:30 | P.PN ---
Subjective Principal diagnosis: Acute pulmonary embolism Very pleasant 71-year-old female patient who presented yesterday to the emergency department because of an acute pain over the anterior chest that was getting worse with breathing. She was thinking that this may be costochondritis knowing that she is been suffering from the same for the past 3 months. In fact the patient was in the emergency department on 04/30/2016 for costochondritis and she was given painkillers. She has a remote history of bilateral lower extremity DVT and this was more than 35 years ago. Back in 2013 , she was diagnosed having a subsegmental pulmonary embolism in the right lung and she was given brief anticoagulation with Xarelto. She subsequently quit. During this current episode, the patient was driving back from [place]. She dropped her daughter in [place] and following that she drove herself to [place]. The patient claims that she had made some stops in between the 70s and she was stretching her legs and keeping herself active. A Doppler of the lower extremity was done this morning and the results are still pending for now and I' m not sure if there is any clots in her leg. Meanwhile the patient is currently on IV heparin. She is doing better. No shortness of breath for now. No chest pain. The CT angios the chest was done. I reviewed the CAT scan images. There is no central pulmonary embolism. There may be a subsegmental pulmonary artery clot in the left lower lobe and this was also noted by the radiologist. I think it's reasonable to treat this patient with anticoagulation based on her history which is very much suggestive of a PE. Patient was reevaluated today on 07/15/2016, seems to be doing relatively well, remains on heparin, and I will suggest Xarelto if approved by her primary insurance. Patient is known to have previous history of DVT and pulmonary embolism 2 in the past, hence I will strongly recommend that she stays on anticoagulation lifetime. And again I would strongly suggest Xarelto as per protocol. Labs today were reviewed she had a relatively normal CBC PTT is therapeutic electrolytes and renal profile are normal. Objective - Vital Signs Vital signs: Vital Signs Temp 97.8 F 07/15/16 04:00 Pulse 66 07/15/16 04:00 Resp 18 07/15/16 04:00 BP 153/81 07/15/16 04:00 Pulse Ox 94 L 07/15/16 04:00 Intake & Output 07/14/16 07/15/16 07/15/16 18:59 06:59 18:59 Intake Total 789.392 320.608 50 Output Total 300 Balance 489.392 320.608 50 Weight 83.7 kg Intake: IV 120 Sodium Chloride 0.9% 1, 120 000 ml @ 20 mls/hr IV . Q24H [facility] Rx#:[id number] Intake, IV Titration 379.392 120.608 Amount Heparin Sodium,Porcine/ 379.392 120.608 D5w Pmx 25,000 unit In Dextrose/Water 1 500ml. bag @ 18 UNITS/KG/HR 31. 02 mls/hr IV .Q16H8M [facility] Rx#:[id number] Oral 290 200 50 Output: Urine 300 Other: Voiding Method Toilet # Voids 1 - Exam The patient appeared well nourished and normally developed. Vital signs as documented. Head exam is unremarkable. No scleral icterus or corneal arcus noted. Neck is without jugular venous distension, thyromegaly, or carotid bruits. Carotid upstrokes are brisk bilaterally. Lungs are clear to auscultation and percussion. Cardiac exam reveals the PMI to be normally sized and situated. Rhythm is regular. First and second heart sounds normal. No murmurs, rubs or gallops. Abdominal exam reveals normal bowel sounds, no masses , no organomegaly and no aortic enlargement. Extremities are nonedematous and both femoral and pedal pulses are normal. - Labs CBC & Chem 7: 07/15/16 05:25 07/15/16 05:25 Labs: Abnormal Lab Results - Last 24 Hours (Table) 07/14/16 07/15/16 Range/Units 17:55 05:25 APTT 65.4 H 69.6 H (22.0-30.0) sec Assessment and Plan Plan: 1 acute pulmonary embolism 2 chest pain likely secondary to above, recovered 3 history of costochondritis 4 previous history of pulmonary embolism in 2013, treated with Xarelto 5 previous history of DVT of the lower extremities bilaterally. Her last the vein thromboses was felt to be provoked by sedentary lifestyle, and she was treated with anticoagulation for a short time. According to the , she only received Xarelto for only one month. She was supposed to stay on it for 3 months. Now considering the multiplicity of her episodes of DVT and pulmonary embolism, patient will need to be on anticoagulation therapy lifetime. 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 manager battery on the case to get approval for Xarelto, and suggest placing the patient on Xarelto lifetime. Follow-up on outpatient basis with Dr. Garcia as scheduled. Time with Patient: Less than 30
--- NOTE | 2016-07-15 16:40 | HP ---
DATE OF ADMISSION: C/O shortness of breath HISTORY OF PRESENT ILLNESS: Ms. Edwards is a 71-year-old female with a past medical history of DVT, PE, hyperlipidemia, [place], coming to the hospital with the chief complaint of pain on the left anterior chest with difficulty in breathing for the past 3 days. The patient states that she was told that she had costochondritis in the month of April and was given NSAIDs, after which her symptoms improved. But for the past 2 to 3 days her symptoms have been recurring, and she thought she might be having costochondritis, but she was also having difficulty in breathing, which made her come to the hospital. At the time of admission the patient had a CT angiogram of the chest, given her recent history of travel, and it was positive for subsegmental left lower lobe clot, so she was started on anticoagulation. Patient had a lower extremity Doppler that was negative for any DVT bilaterally. Patient denies having any fever, chills or rigors. She denies having any cough. Denies having any abdominal pain, nausea, vomiting or diarrhea. No dysuria. No constipation. She states that she has a history of DVT and PE in the past and she was on Xarelto. That was discontinued ( ) years back by her PCP. Review of all 13 systems is done and is negative except as mentioned in the HPI. Past medical history is significant for: 1. PE. 2. DVT. 3. Hypertension. 4. Hyperlipidemia. 5. Myocardial infarction. 6. Asthma. 7. Costochondritis. 8. Brain aneurysm 5 mm. 9. Migraine headaches. 10. Chiari malformation of the brain. PAST SURGICAL HISTORY: 1. Heart catheterization. 2. Hysterectomy. 3. Orthopedic surgery. 4. Arnold-Chiari malformation surgery in 2001. ALLERGIES: 1. AMOXICILLIN. 2. CAFFEINE. 3. MORPHINE. 4. PENICILLINS. 5. PREDNISONE. HOME MEDICATIONS: 1. Albuterol 2 puffs q.4 to 6 hours p.r.n. for shortness of breath. 2. Symbicort 160/4.5 two puffs b.i.d. 3. Spiriva 4. Albuterol 2.5 mg nebulization solution. 5. Lexapro 10 mg p.o. FAMILY HISTORY: Positive for melanoma and bipolar disorder in father; unknown cancer, diabetes mellitus in mother. SOCIAL HISTORY: Former smoker. Occasional alcohol use. PATIENT'S VITAL SIGNS: Temperature 97.5, heart rate 57, respiratory rate 18, blood pressure 120/65. Saturating at 97% on room air. GENERAL EXAMINATION: Patient appears to be in no acute distress. HEENT: Atraumatic, normocephalic. EYES: Pupils round and reactive to light. No pallor. No icterus. NECK: No JVD. No thyromegaly. CARDIOVASCULAR: S1, S2 heard. LUNGS: Bilateral breath sounds are positive. No wheeze or crackles. ABDOMEN: Soft, nontender. Bowel sounds positive. No organomegaly. EXTREMITIES: No edema and no cyanosis. Peripheral pulses are felt. DROP FORGE HAND: Alert, awake, oriented x3. PSYCHIATRIC: Appropriate mood and affect. MUSCULOSKELETAL: No joint abnormalities. SKIN: No rashes. PATIENT'S LABS: White count of 8.9, hemoglobin 14.2, platelets 200. Sodium 138, potassium 3.9, chloride 104, bicarb 23. BUN 22, creatinine 0.60. Troponin less than 0.012 x3. ASSESSMENT AND PLAN: 1. Subsegmental pulmonary embolism. 2. Previous history of deep venous thrombosis and pulmonary embolism. 3. Moderate persistent asthma. 4. History of Arnold-Chiari malformation surgery. 5. History of brain aneurysm about 5 mm. 6. History of costochondritis. 7. Hyperlipidemia. PLAN: The plan is to continue the patient on heparin drip for suspected PE. Patient has a history of multiply DVTs and PE in the past, so it was discussed that she will have to be on anticoagulation lifelong. Patient did have an episode of bleeding from the IV site earlier in the evening, but they were able to get the bleeding under control with local pressure. Repeat hemoglobin has been stable around 14. Patient will be changed to Xarelto tomorrow and see if she is covered by her insurance. Further recommendations to follow depending on the progress of the patient. TAMMY
[2016-07-15] MEDS: ACETAMINOPHEN TAB 325 MG TAB PO PRN (17:33)
[2016-07-15] MEDS: ESCITALOPRAM 10 MG TAB PO SCH (17:35)
[2016-07-15] MEDS: MONTELUKAST 10 MG TAB PO SCH (21:06)
[2016-07-16] MEDS: oxyCODONE-APAP 7.5-325MG 1 EACH TAB PO PRN (04:59)
[2016-07-16 07:09] LABS: Basophils # (A) 0.1 k/uL (0-0.2); Basophils % (A) 1 %; CH 31.8; CHCM 33.3; Eosinophils # (A) 0.4 k/uL (0-0.7); Eosinophils % (A) 5 %; HCT 40.3 % (34.0-46.0); HDW 2.65; HGB 13.6 gm/dL (11.4-16.0); Luc # (Auto) 0.12; Luc % (Auto) 2; Lymphocytes # (A) 2.5 k/uL (1.0-4.8); Lymphocytes % (A) 32 %; MCH 32.5 pg (25.0-35.0); MCHC 33.8 g/dL (31.0-37.0); MCV 96.1 fL (80.0-100.0); Mean Platelet Volume 7.6; Monocytes # (A) 0.5 k/uL (0-1.0); Monocytes % (A) 6 %; Neutrophils # (A) 4.3 k/uL (1.3-7.7); Neutrophils % (A) 56 %; RBC 4.19 m/uL (3.80-5.40); RDW 12.9 % (11.5-15.5); WBC 7.8 k/uL (3.8-10.6); WBC (Perox) 8.27
[2016-07-16] MEDS: SODIUM CHLORIDE 0.9% 1,000 ML IV SCH (07:11)
[2016-07-16] MEDS: HEPARIN SODIUM,PORCINE/D5W PMX 25,000 UNIT in DEXTROSE/WATER 1 500ML.BAG IV SCH (07:11)
--- NOTE | 2016-07-16 08:10 | P.PN ---
Subjective Principal diagnosis: The patient is here for pulmonary embolus. Patient is here for recurrent pulmonary embolus. We will go ahead and start Xarelto today if covered by insurance. She still complains of headache element. Heparin is continued. No voiding difficulties. Nausea is improved. Objective - Vital Signs Vital signs: Vital Signs Temp 98.2 F 07/16/16 04:00 Pulse 58 L 07/16/16 04:00 Resp 18 07/16/16 04:00 BP 134/77 07/16/16 04:00 Pulse Ox 95 07/16/16 04:00 Intake & Output 07/15/16 07/16/16 07/16/16 18:59 06:59 18:59 Intake Total 716.896 431.385 Balance 716.896 431.385 Weight 83.7 kg 83.5 kg Intake: IV 366.4 Heparin Sodium,Porcine/ 206.4 D5w Pmx 25,000 unit In Dextrose/Water 1 500ml. bag @ 18 UNITS/KG/HR 31. 02 mls/hr IV .Q16H8M [facility] Rx#:[id number] Sodium Chloride 0.9% 1, 160 000 ml @ 20 mls/hr IV . Q24H [facility] Rx#:[id number] Intake, IV Titration 300.496 431.385 Amount Heparin Sodium,Porcine/ 250.496 431.385 D5w Pmx 25,000 unit In Dextrose/Water 1 500ml. bag @ 18 UNITS/KG/HR 31. 02 mls/hr IV .Q16H8M [facility] Rx#:[id number] Promethazine Inj 50 mg In 50 Sodium Chloride 0.9% 50 ml @ 200 mls/hr IVPB Q6HR PRN Rx#:[id number] Oral 50 Other: Voiding Method Toilet # Voids 2 1 - Constitutional General appearance: Absent: average body habitus - Neck Neck: Absent: lymphadenopathy - Respiratory Respiratory: bilateral: CTA - Cardiovascular Rhythm: regular Heart sounds: normal: S1, S2 Abnormal Heart Sounds: Present: systolic murmur - Gastrointestinal General gastrointestinal: Present: soft. Absent: tenderness - Neurologic Neurologic: Present: CNII-XII intact - Labs CBC & Chem 7: 07/16/16 06:47 07/15/16 05:25 Assessment and Plan (1) Asthma Status: Acute (2) Pulmonary embolism Status: Acute (3) Chronic nausea Status: Chronic Plan: we'll go ahead and start Xarelto. Anticipate discharge in next 24 hours.
[2016-07-16 08:25] LABS: ALT 41 U/L (9-52); AST 22 U/L (14-36); Alkaline Phosphatase 82 U/L (38-126); Anion Gap 7 mmol/L; Blood Urea Nitrogen 11 mg/dL (7-17); Calcium 8.7 mg/dL (8.4-10.2); Carbon Dioxide 26 mmol/L (22-30); Chloride 106 mmol/L (98-107); Glucose 92 mg/dL (74-99); Non-African American GFR(MDRD) >60 (>60 ml/min/1.73 sqM); Potassium 4.3 mmol/L (3.5-5.1); Sodium 139 mmol/L (137-145); Total Bilirubin 0.6 mg/dL (0.2-1.3); Total Protein 5.8 g/dL (6.3-8.2)
[2016-07-16] MEDS ORDERED: RIVAROXABAN 15 MG TAB PO SCH (09:00)
[2016-07-16] MEDS: ACETAMINOPHEN TAB 325 MG TAB PO PRN (09:00)
[2016-07-16] MEDS: FAMOTIDINE 20 MG TAB PO SCH (09:02)
[2016-07-16 12:04] VITALS: BP 113/62; PULSE 55; RESP 18; TEMP 97.4
--- NOTE | 2016-07-16 12:15 | P.PN ---
Subjective Principal diagnosis: Acute pulmonary embolism Very pleasant 71-year-old female patient who presented yesterday to the emergency department because of an acute pain over the anterior chest that was getting worse with breathing. She was thinking that this may be costochondritis knowing that she is been suffering from the same for the past 3 months. In fact the patient was in the emergency department on 04/30/2016 for costochondritis and she was given painkillers. She has a remote history of bilateral lower extremity DVT and this was more than 35 years ago. Back in 2013 , she was diagnosed having a subsegmental pulmonary embolism in the right lung and she was given brief anticoagulation with Xarelto. She subsequently quit. During this current episode, the patient was driving back from [place]. She dropped her daughter in [place] and following that she drove herself to [place]. The patient claims that she had made some stops in between the 70s and she was stretching her legs and keeping herself active. A Doppler of the lower extremity was done this morning and the results are still pending for now and I' m not sure if there is any clots in her leg. Meanwhile the patient is currently on IV heparin. She is doing better. No shortness of breath for now. No chest pain. The CT angios the chest was done. I reviewed the CAT scan images. There is no central pulmonary embolism. There may be a subsegmental pulmonary artery clot in the left lower lobe and this was also noted by the radiologist. I think it's reasonable to treat this patient with anticoagulation based on her history which is very much suggestive of a PE. Patient was reevaluated today on 07/15/2016, seems to be doing relatively well, remains on heparin, and I will suggest Xarelto if approved by her primary insurance. Patient is known to have previous history of DVT and pulmonary embolism 2 in the past, hence I will strongly recommend that she stays on anticoagulation lifetime. And again I would strongly suggest Xarelto as per protocol. Labs today were reviewed she had a relatively normal CBC PTT is therapeutic electrolytes and renal profile are normal. Reevaluated today on 07/16/2016, patient is doing well, she has no active pulmonary symptoms. Has history of chronic headaches, that is being addressed by her admitting physician. No cough no wheezing no shortness of breath and no chest pain. PTT remains therapeutic, patient will be placed on Xarelto, and Dr. Bates is planning to discharge the patient home in a.m. And I fully agree with the plan. Objective - Vital Signs Vital signs: Vital Signs Temp 97.4 F L 07/16/16 12:02 Pulse 55 L 07/16/16 12:02 Resp 18 07/16/16 12:02 BP 113/62 07/16/16 12:02 Pulse Ox 94 L 07/16/16 12:02 Intake & Output 07/15/16 07/16/16 07/16/16 18:59 06:59 18:59 Intake Total 716.896 611.385 Balance 716.896 611.385 Weight 83.7 kg 83.5 kg Intake: IV 366.4 Heparin Sodium,Porcine/ 206.4 D5w Pmx 25,000 unit In Dextrose/Water 1 500ml. bag @ 18 UNITS/KG/HR 31. 02 mls/hr IV .Q16H8M [facility] Rx#:[id number] Sodium Chloride 0.9% 1, 160 000 ml @ 20 mls/hr IV . Q24H [facility] Rx#:[id number] Intake, IV Titration 300.496 431.385 Amount Heparin Sodium,Porcine/ 250.496 431.385 D5w Pmx 25,000 unit In Dextrose/Water 1 500ml. bag @ 18 UNITS/KG/HR 31. 02 mls/hr IV .Q16H8M [facility] Rx#:[id number] Promethazine Inj 50 mg In 50 Sodium Chloride 0.9% 50 ml @ 200 mls/hr IVPB Q6HR PRN Rx#:[id number] Oral 50 180 Other: Voiding Method Toilet # Voids 2 1 - Exam The patient appeared well nourished and normally developed. Vital signs as documented. Head exam is unremarkable. No scleral icterus or corneal arcus noted. Neck is without jugular venous distension, thyromegaly, or carotid bruits. Carotid upstrokes are brisk bilaterally. Lungs are clear to auscultation and percussion. Cardiac exam reveals the PMI to be normally sized and situated. Rhythm is regular. First and second heart sounds normal. No murmurs, rubs or gallops. Abdominal exam reveals normal bowel sounds, no masses , no organomegaly and no aortic enlargement. Extremities are nonedematous and both femoral and pedal pulses are normal. - Labs CBC & Chem 7: 07/16/16 06:47 07/16/16 06:47 Labs: Abnormal Lab Results - Last 24 Hours (Table) 07/16/16 07/16/16 Range/Units 06:47 07:59 APTT 73.9 H (22.0-30.0) sec Total Protein 5.8 L (6.3-8.2) g/dL Albumin 3.1 L (3.5-5.0) g/dL Assessment and Plan Plan: 1 acute pulmonary embolism 2 chest pain likely secondary to above, recovered 3 history of costochondritis 4 previous history of pulmonary embolism in 2013, treated with Xarelto 5 previous history of DVT of the lower extremities bilaterally. Her last the vein thromboses was felt to be provoked by sedentary lifestyle, and she was treated with anticoagulation for a short time. According to the , she only received Xarelto for only one month. She was supposed to stay on it for 3 months. Now considering the multiplicity of her episodes of DVT and pulmonary embolism, patient will need to be on anticoagulation therapy lifetime. 6 CLOTH CHECKER 5 mm aneurysm being monitored in addition to previous Chiari malformation 7 moderate persistent bronchial asthma within on Symbicort and being followed up in our office Recommendation: Continue present treatment plan. agree with Xarelto and agree with discharge planning today or tomorrow. Follow up with Dr. Garcia and schedule. Time with Patient: Less than 30
--- NOTE | 2016-09-11 10:39 | P.DS ---
Providers Date of admission: 07/14/16 04:25 Attending physician: Alan aBtes Consults: 07/14/16 04:26 Consult Physician Routine Consulting Provider: Wilber Garcia Reason/Comments: Your patient. Acute PE Do you want consulting provider notified?: Yes Primary care physician: Alan Bates - Discharge Diagnosis(es) (1) Asthma Status: Acute Priority: Medium (2) Pulmonary embolism Status: Acute Priority: High (3) Chronic nausea Status: Chronic Priority: Medium Hospital Course: This is a discharge summary and a 71-year-old white female essentially admitted for pleurisy. She had been battling this for many months.The patient was having difficulty but because of her history of asthma, this made it difficult to make the correct diagnosis. She had sudden onset of pleurisy. CT scan of the chest did show pulmonary embolus. 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 And buse of this was admitted appropriately for treatment. The patient was then discharged in stable condition on appropriate blood thinner/anticoagulation. The patient tolerated the medication well but has been forewarned about significant possible side effects. She supposedly has had previous venous thromboembolism in the lower extremity also. She'll follow-up with me in approximately 3-5 days. Patient Condition at Discharge: Stable Plan - Discharge Summary New Discharge Prescriptions: New Rivaroxaban [Xarelto] 15 mg PO BID #40 tab No Action Zolpidem [Ambien] 5 mg PO HS PRN PRN Reason: Insomnia Budesonide/Formoterol Fumarate [Symbicort 160-4.5 Mcg Inhaler] 2 puff INHALATION RT-BID PRN PRN Reason: Shortness Of Breath Albuterol Inhaler [Ventolin Hfa Inhaler] 2 puff INHALATION RT-Q6H PRN PRN Reason: Shortness Of Breath Montelukast [Singulair] 10 mg PO HS #30 tab Escitalopram [Lexapro] 10 mg PO DAILY Albuterol Nebulized [Ventolin Nebulized] 2.5 mg INHALATION RT-QID PRN PRN Reason: Shortness Of Breath Discharge Medication List Albuterol Inhaler [Ventolin Hfa Inhaler] 2 puff INHALATION RT-Q6H PRN 03/11/16 [ History] Budesonide/Formoterol Fumarate [Symbicort 160-4.5 Mcg Inhaler] 2 puff INHALATION RT-BID PRN 03/11/16 [History] Zolpidem [Ambien] 5 mg PO HS PRN 03/11/16 [History] Montelukast [Singulair] 10 mg PO HS #30 tab 03/14/16 [Rx] Albuterol Nebulized [Ventolin Nebulized] 2.5 mg INHALATION RT-QID PRN 07/14/16 [ History] Escitalopram [Lexapro] 10 mg PO DAILY 07/14/16 [History] Rivaroxaban [Xarelto] 15 mg PO BID #40 tab 07/16/16 [Rx] Follow up Appointment(s)/Referral(s): Alan Bates MD [Primary Care Provider] - 07/23/16 3:00 pm (Please call to make appointment. ) Wilber Garcia DO [Doctor of Osteopathic Medicine] - 08/02/16 1:00 pm Patient Instructions/Handouts: Pulmonary Embolism (DC) Discharge Disposition: HOME SELF-CARE
== END 2016-07-16 15:13 | disposition home or self-care (01) | DRG 176 ==
LOC: EC 00:20 → 6SEL 04:25
PROVIDERS: ADMIT Family Medicine; ATTEND Family Medicine
DX: I26.99 Other pulmonary embolism without acute cor pulmonale (principal); I10 Essential (primary) hypertension; E78.5 Hyperlipidemia, unspecified; J45.40 Moderate persistent asthma, uncomplicated; M94.0 Chondrocostal junction syndrome [Tietze]; I25.2 Old myocardial infarction; M81.0 Age-related osteoporosis without current pathological fracture; G43.909 Migraine, unspecified, not intractable, without status migrainosus; Z86.718 Personal history of other venous thrombosis and embolism; Z87.891 Personal history of nicotine dependence; Z86.711 Personal history of pulmonary embolism; Z86.69 Personal history of other diseases of the nervous system and sense organs; Z90.710 Acquired absence of both cervix and uterus; Z79.51 Long term (current) use of inhaled steroids; Z79.899 Other long term (current) drug therapy; Z88.1 Allergy status to other antibiotic agents; Z88.5 Allergy status to narcotic agent; Z88.0 Allergy status to penicillin; Z88.8 Allergy status to other drugs, medicaments and biological substances
CPT/HCPCS: 36415; 70450; 71020; 71275; 80048; 80053; 82150; 82550; 82553; 83690; 83735; 84484; 85025; 85379; 85610; 85730; 93005; 93970; 94760; 96365; 96376; 99291

== ENCOUNTER → 2016-10-30 | Outpatient (CLI) | payer MEDICARE ==
[2016-10-30 10:39] LABS: Blood Urea Nitrogen 14 mg/dL (7-17); Non-African American GFR(MDRD) >60 (>60 ml/min/1.73 sqM)
--- NOTE | 2016-10-30 12:04 | CT ---
EXAMINATION TYPE: CT angio chest DATE OF EXAM: 10/30/2016 11:52 AM COMPARISON: Previous study dated 07/14/2016 HISTORY: PE. History of PE CT DLP: 507 mGycm Automated exposure control for dose reduction was used. CONTRAST: CTA scan of the thorax is performed with IV Contrast, patient injected with 100 ml mL of Omnipaque 35 0, pulmonary embolism protocol. . FINDINGS: There is a tiny left upper lobe granuloma which is calcified. Lungs otherwise clear. There is no significant axillary, internal mammary, mediastinal or hilar adenopathy. There is no evidence of pulmonary embolus. Aorta is not enlarged and there is no evidence of dissection. The heart is not enlarged. There is no pleural or pericardial fluid. Visualized portions of the upper abdomen are unremarkable. There is hypertrophic spondylosis within the dorsal spine. IMPRESSION: 1. THIS EXAMINATION IS NEGATIVE FOR DVT. 2. EVIDENCE OF OLD GRANULOMATOUS DISEASE. 3. DEGENERATIVE CHANGES WITHIN THE SPINE.
== END | disposition home or self-care (01) ==
LOC: RADCTMAIN 09:48
PROVIDERS: ATTEND Internal Medicine Critical Care Medicine
DX: I26.99 Other pulmonary embolism without acute cor pulmonale (principal)
CPT/HCPCS: 82565; 84520; 71275; 36415; Q9967

== ENCOUNTER → 2017-03-03 | Outpatient (CLI) | payer MEDICARE ==
--- NOTE | 2017-03-04 11:04 | MM ---
Reason for exam: screening (asymptomatic). Last mammogram was performed 4 years and 1 month ago. History: Patient is postmenopausal. Physical Findings: A clinical breast exam by your physician is recommended on an annual basis and results should be correlated with mammographic findings. MG 3D Screening Mammo W/Cad Bilateral CC and MLO view(s) were taken. Prior study comparison: February 15, 2013, bilateral digital screening mammo w/CAD. July 08, 2006, workup left diagnostic mammogram. There are scattered fibroglandular densities. There is no discrete abnormality. No significant changes when compared with prior studies. ASSESSMENT: Negative, BI-RAD 1 RECOMMENDATION: Routine screening mammogram of both breasts in 1 year.
== END | disposition home or self-care (01) ==
LOC: RADMAMWWP 11:12
PROVIDERS: ATTEND Family Medicine
DX: Z12.31 Encounter for screening mammogram for malignant neoplasm of breast (principal)
CPT/HCPCS: 77063; G0202

== ENCOUNTER → 2017-05-30 | Outpatient (CLI) | payer MEDICARE | END | disposition home or self-care (01) | LOC: LABWHC1 15:03 | PROVIDERS: ATTEND Internal Medicine Critical Care Medicine | DX: J45.909 Unspecified asthma, uncomplicated (principal) | CPT/HCPCS: 36415; 82785; 85008 ==